=== PATIENT | male | born 1995 | race Caucasian/White ===

== ENCOUNTER 2019-12-29 23:44 | Emergency (ER) | payer OTHER ==
[2019-12-30 00:01] VITALS: BP 144/90; PULSE 95; TEMP 98.2; BMI 27.3
--- NOTE | 2019-12-30 00:26 | PDOC ---
*Physical Exam - Vital Signs Last Vital Signs Temp Pulse Resp BP Pulse Ox 98.2 F 95 H 18 144/90 100 12/29/19 23:58 12/29/19 23:58 12/29/19 23:58 12/29/19 23:58 12/29/19 23:58 Medical Decision Making - Medical Decision Making 12/30/19 00:25 Patient seen by the advanced practice provider under my supervision. Ancillary testing reviewed as necessary. I agree with plan as outlined by the advanced practice provider. Discharge - Discharge Information Problems reviewed: Yes Clinical Impression/Diagnosis: Laceration of middle finger without foreign body without damage to nail Qualifiers: Encounter type: initial encounter Laterality: left Qualified Code(s): S61.213A - Laceration without foreign body of left middle finger without damage to nail, initial encounter Condition: Stable Disposition: HOME - Follow up/Referral - Patient Discharge Instructions Additional Instructions: Rest, elevate, avoid strenuous activity or heavy lifting until healed Leave dressing on for the next 48 hours, Then may remove outer Telfa dressing gently and wash area with soap and water. Careful not to remove Gelfoam/white bottom layer while changing dressing and washing hand gently Reapply dressing daily for the next 5 days On day #6 keep the wound protected and cover as needed until Gelfoam dressing fall away allowing wound to start to dry May use Tylenol or Motrin for pain relief Been given a referral for hand specialist. Call to schedule appointment for reevaluation. Descanse, eleve, evite actividades extenuantes o levantar objetos pesados ?? hasta que sane Kenisha el vendaje coco las prximas 48 horas, Luego, puede quitar suavemente el apsito externo de Telfa y la el vicente con agua y jabn. Tenga cuidado de no quitar Gelfoam / capa inferior brandy mientras cambia el vendaje y lave las reed suavemente Vuelva a aplicar el vendaje diariamente coco los prximos 5 milan. En el da 6, mantenga la herida protegida y cbrala segn sea necesario hasta que el apsito Gelfoam se caiga permitiendo que la herida comience a secarse. Puede usar Tylenol o Motrin para aliviar el dolor. Recibi ana paula referencia para un especialista en reed. Llame para programar ana paula alexa para la reevaluacin. - Post Discharge Activity Work/Back to School Note: Back to Work
--- NOTE | 2019-12-30 02:09 | PDOC ---
History of Present Illness - General Chief Complaint: Laceration Stated Complaint: LACERATION Time Seen by Provider: 12/30/19 00:17 History Source: Patient Exam Limitations: No Limitations - History of Present Illness Initial Comments: 12/30/19 02:05 HISTORY OF PRESENT ILLNESS: 24-year-old male denies medical history presents emergency department for evaluation of laceration to the left middle finger sustained at approximately 7:00 this evening while at work. 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 Patient sustained avulsion laceration to left middle finger. Patient reports his last tetanus shot was approximately 2 years ago after he sustained a laceration while at work. No recent travel or sick contacts. PAST MEDICAL HISTORY: Denies past medical history SURGICAL HISTORY: Denies ALLERGIES: No known drug allergies REVIEW OF SYSTEMS General/Constitutional: Denies fever or chills. Denies weakness, weight change. HEENT: Denies change in vision. Denies ear pain or discharge. Denies sore throat. Cardiovascular: Denies chest pain or shortness of breath. Respiratory: Denies cough, wheezing, or hemoptysis. Gastrointestinal: Denies nausea, vomiting, diarrhea or constipation. Denies rectal bleeding. Genitourinary: Denies dysuria, frequency, or change in urination. Musculoskeletal: Denies joint or muscle swelling or pain. Denies neck or back pain. Skin and breasts: See HPI Neurologic: Denies headache, vertigo, loss of consciousness, or loss of sensation. Psychiatric: Denies depression or anxiety. Endocrine: Denies increased thirst. Denies abnormal weight change. Hematologic/Lymphatic: Denies anemia, easy bleeding, or history of blood clots. Allergic/Immunologic: Denies hives or skin allergy. Denies latex allergy. PHYSICAL EXAM General Appearance: Well-appearing, appropriately dressed. No apparent distress , no intoxication. Musculoskeletal/Extremities: Normal inspection. FROM of all extremities, normal capillary refill. Pelvis Stable. No CVA tenderness. No tenderness to extremities, pedal edema, swelling, erythema or deformity. Avulsion laceration present to the DIP of the third digit on the dorsum of the left hand. Obvious tissue loss noted. Full flexion and extension against resistance without difficulty. Full sensation present distal to the injury. Integumentary: Avulsion laceration present to the DIP of the third digit on the dorsum of the left hand. Obvious tissue loss noted. Past History - Past Medical History Allergies/Adverse Reactions: Allergies Allergy/AdvReac Type Severity Reaction Status Date / Time No Known Allergies Allergy Verified 12/29/19 23:57 Home Medications: Ambulatory Orders NK [No Known Home Medication] 12/29/19 CVA: No COPD: No CHF: No - Psycho Social/Smoking Cessation Hx Smoking History: Never smoked Information on smoking cessation initiated: No *Physical Exam - Vital Signs Last Vital Signs Temp Pulse Resp BP Pulse Ox 98.2 F 95 H 18 144/90 100 12/29/19 23:58 12/29/19 23:58 12/29/19 23:58 12/29/19 23:58 12/29/19 23:58 ED Treatment Course - RADIOLOGY Radiology Studies Ordered: Category Date Time Status FINGER(S) LEFT [RAD] Stat Radiology 12/30/19 00:37 Taken Medical Decision Making - Medical Decision Making 12/30/19 02:08 A/P: 24-year-old male with avulsion laceration to the dorsum of the third digit of the left hand Unable to repair laceration as there is obvious tissue loss present X-rays as read by me: No acute fractures noted. Patient with continued bleeding since initial injury at approximately 7:00 this evening. Direct pressure is been unable to obtain hemostasis. Surgicel dressing placed. Reassess 12/30/19 02:13 12/30/19 02:44 Hemostasis obtained using Surgicel. New dressing applied with aluminum splint to keep finger in extension. Discharge home with referral for hand specialist. Discharge - Discharge Information Problems reviewed: Yes Clinical Impression/Diagnosis: Laceration of middle finger without foreign body without damage to nail Qualifiers: Encounter type: initial encounter Laterality: left Qualified Code(s): S61.213A - Laceration without foreign body of left middle finger without damage to nail, initial encounter Condition: Stable Disposition: HOME - Admission No - Follow up/Referral - Patient Discharge Instructions Additional Instructions: Rest, elevate, avoid strenuous activity or heavy lifting until healed Leave dressing on for the next 48 hours, Then may remove outer Telfa dressing gently and wash area with soap and water. Careful not to remove Gelfoam/white bottom layer while changing dressing and washing hand gently Reapply dressing daily for the next 5 days On day #6 keep the wound protected and cover as needed until Gelfoam dressing fall away allowing wound to start to dry May use Tylenol or Motrin for pain relief Been given a referral for hand specialist. Call to schedule appointment for reevaluation. Descanse, eleve, evite actividades extenuantes o levantar objetos pesados ?? hasta que sane Kenisha el vendaje coco las prximas 48 horas, Luego, puede quitar suavemente el apsito externo de Telfa y la el vicente con agua y jabn. Tenga cuidado de no quitar Gelfoam / capa inferior brandy mientras cambia el vendaje y lave las reed suavemente Vuelva a aplicar el vendaje diariamente coco los prximos 5 milan. En el da 6, mantenga la herida protegida y cbrala segn sea necesario hasta que el apsito Gelfoam se caiga permitiendo que la herida comience a secarse. Puede usar Tylenol o Motrin para aliviar el dolor. Recibi ana paula referencia para un especialista en reed. Llame para programar ana paula alexa para la reevaluacin. - Post Discharge Activity Work/Back to School Note: Back to Work
== END 2019-12-30 03:14 | disposition home or self-care (01) ==
LOC: JER 23:44
DX: S61.213A Laceration without foreign body of left middle finger without damage to nail, initial encounter (principal); W26.0XXA Contact with knife, initial encounter; Y93.G1 Activity, food preparation and clean up; Y92.511 Restaurant or cafe as the place of occurrence of the external cause; Y99.0 Civilian activity done for income or pay
CPT/HCPCS: 73140-TC-LT-FY; 99283-25